=== PATIENT | male | born 1970 | race African-American/Black ===

== ENCOUNTER 2019-04-30 21:35 | Emergency (ER) | payer BC ==
[~2019-04-30] VITALS: Ht 172.7 cm; Wt 120.0 kg
[2019-04-30 22:05] VITALS: BP 141/82
--- NOTE | 2019-04-30 22:18 | PHYS DOC ---
Adult General Chief Complaint Chief Complaint: KNEE INJURY [facility] HPI Patient is a 48 year old male who presents with complaint of left knee pain and swelling that started earlier today. Patient states this happens to him usually 1-2 times annually. He has been diagnosed with gout in the past. No known inj ury. No medications taken prior to arrival. Pain is moderate Review of Systems Review of Systems All other ROS is negative unless otherwise stated in HPI Physical Exam Physical Exam See above Constitutional: Well developed, well nourished, no acute distress, non-toxic appearance. [] HENT: Normocephalic, atraumatic, bilateral external ears normal, oropharynx moist, no oral exudates, nose normal. [] Eyes: PERRLA, EOMI, conjunctiva normal, no discharge. [] Neck: Normal range of motion, no tenderness, supple, no stridor. [] Cardiovascular:Heart rate regular rhythm, no murmur [] Lungs & Thorax: Bilateral breath sounds clear to auscultation [] Abdomen: Bowel sounds normal, soft, no tenderness, no masses, no pulsatile masses. [] Skin: Warm, dry, no erythema, no rash. [] Back: No tenderness, no CVA tenderness. [] Extremities: Normal except for left knee which has moderate swelling superiorly and is warm to touch. Neurologic: Alert and oriented X 3, normal motor function, normal sensory function, no focal deficits noted. [] Psychologic: Affect normal, judgement normal, mood normal. [] EKG EKG [] Radiology/Procedures Radiology/Procedures [] Course & Med Decision Making Course & Med Decision Making Pertinent Labs and Imaging studies reviewed. (See chart for details) 2215: Patient's examination is consistent with gout. We'll start him on indomethacin and also provide a prescription for hydrocodone for pain. Dragon Disclaimer Dragon Disclaimer This electronic medical record was generated, in whole or in part, using a voice recognition dictation system. Departure Departure Impression: Primary Impression: Acute gout Disposition: 01 HOME, SELF-CARE Condition: STABLE Referrals: UNKNOWN PCP NAME (PCP) Patient Instructions: Gout Scripts Hydrocodone/Apap 5-325 (NORCO 5-325 TABLET) 1 Each Tablet 1 TAB PO PRN Q6HRS PRN for PAIN, #10 TAB 0 Refills Prov: BARAK LAINEZ DO 04/30/19 Indomethacin (INDOMETHACIN) 50 Mg Capsule 1 CAP PO TID for arthritis for 10 Days, #30 CAP 2 Refills with food you may stop if symptoms resolve Prov: BARAK LAINEZ DO 04/30/19 BARAK LAINEZ DO Apr 30, 2019 22:18
[2019-04-30] MEDS ORDERED: HYDR-3164 PO (22:21)
[2019-04-30] MEDS ORDERED: INDO50CA15 PO (22:21)
[2019-04-30] MEDS ORDERED: INDOMETHACIN 25 MG CAPSULE. PO ONE (22:30)
== END 2019-04-30 22:40 | disposition home or self-care (01) ==
LOC: ER 21:35
DX: M10.9 Gout, unspecified (principal); M25.562 Pain in left knee; R60.0 Localized edema
CPT/HCPCS: 99283